=== PATIENT | female | born 1950 ===

== ENCOUNTER → 2022-03-14 14:08 | Outpatient (CLI) | payer MEDICARE, SELFPAY ==
--- NOTE | ~2022-03-14 | MMUS_ITS ---
EXAMINATION: MM diagnostic esther LT w momo, US breast LT limited HISTORY: Follow-up left breast asymmetry TECHNIQUE: Additional 3-D tomosynthesis images of the left breast were performed and synthetic 2-D im ages were generated. CAD analysis was submitted and interpreted. High resolution Limited left breast ultrasound was performed. COMPARISON: Comparison to multiple prior studies sequentially, with oldest reviewed study dated 06/25. BREAST PARENCHYMAL COMPOSITION: Breast composition is almost entirely fatty FINDINGS: MAMMOGRAPHIC FINDINGS: There is a persistent focal asymmetry in the upper outer quadrant of the left breast anteriorly. No s uspicious calcifications or architectural distortion. ULTRASOUND: Limited left breast ultrasound: At 1:00 near the areola there is an oval hypoechoic mass with low lev el internal echoes measuring 3 x 3 x 3 mm, parallel orientation, no significant posterior features an d no internal vascularity, likely benign. This corresponds to the area of mammographic concern. IMPRESSION: 1. Small 3 mm left breast mass at 1:00 near the nipple, likely benign. 2. Recommend 6 month follow-up diagnostic left mammogram and ultrasound BI-RADS category 3, probably benign findings. Reviewed, dictated and finalized at location A. IMPRESSION: 1. Small 3 mm left breast mass at 1:00 near the nipple, likely benign. 2. Recommend 6 month follow-up diagnostic left mammogram and ultrasound BI-RADS category 3, probably benign findings.
== END ==
PROVIDERS: PCP Internal Medicine; Visit Provider Hospitalist
DX: R92.8 Other abnormal and inconclusive findings on diagnostic imaging of breast (principal); N63.20 Unspecified lump in the left breast, unspecified quadrant
CPT/HCPCS: 76642; 77061; 77065; G0279

== ENCOUNTER → 2022-10-25 14:31 | Outpatient (CLI) | payer MEDICARE, BC, SELFPAY ==
--- NOTE | ~2022-10-25 | MMUS_ITS ---
EXAMINATION: MM diagnostic esther LT w momo, US breast LT limited HISTORY: Six-month follow-up for probably benign left breast mass TECHNIQUE: Craniocaudal, mediolateral, and mediolateral oblique 3-D tomosynthesis images of the left breast were performed and synthetic 2-D images were generated. CAD analysis was submitted and interpr eted. High resolution limited left breast ultrasound was performed. COMPARISON: 03/14/2022, 02/09/2022, 01/08/2021, 11/20/2015 BREAST PARENCHYMAL COMPOSITION: The breasts are almost entirely fatty. FINDINGS: MAMMOGRAPHIC FINDINGS: No suspicious mass, calcification, or architectural distortion are identified to suggest malignancy. There has been no suspicious interval change. ULTRASOUND: There is no evidence of focal abnormal solid or cystic mass in the vicinity of the previously describ ed sonographically finding. Ligamentous shadowing is noted. IMPRESSION: 1. No mammographic or sonographic evidence of malignancy. 2. Recommend routine screening mammography, due in six months. BI-RADS Category 1: Negative Reviewed, dictated and finalized at location A. IMPRESSION: 1. No mammographic or sonographic evidence of malignancy. 2. Recommend routine screening mammography, due in six months. BI-RADS Category 1: Negative
== END ==
PROVIDERS: PCP Obstetrics & Gynecology; Visit Provider Internal Medicine
DX: N63.21 Unspecified lump in the left breast, upper outer quadrant (principal)
CPT/HCPCS: 76642; 77061; 77065; G0279

== ENCOUNTER 2024-03-14 15:34 | Outpatient (CLI) | payer MEDICARE, BC, SELFPAY ==
--- NOTE | ~2024-03-14 | MM_ITS ---
EXAMINATION: MM screening [facility] BI w momo HISTORY: Screening TECHNIQUE: Craniocaudal and mediolateral oblique 3-D tomosynthesis images were obtained and synthetic 2-D images were generated. CAD analysis was submitted and interpreted. COMPARISON: Examination was compared with multiple prior studies, performed most recently on and dating back to 07/03/2014 BREAST PARENCHYMAL COMPOSITION: Not Dense. The breasts are almost entirely fatty. FINDINGS: Punctate calcifications are detected bilaterally, stable and benign in appearance, likely s ecretory in origin. Stable parenchymal pattern without suspicious microcalcifications, architectural distortion, discrete masses or significant asymmetry. IMPRESSION: 1. No mammographic evidence of malignancy. 2. Recommend routine screening mammography in one year. BI-RADS Category 2: Benign finding(s). Reviewed, dictated and finalized at location A.
== END 2024-03-14 15:35 | disposition home or self-care (01) ==
DX: Z12.31 Encounter for screening mammogram for malignant neoplasm of breast (principal)
CPT/HCPCS: 77063; 77067